=== PATIENT | male | born 1950 | race Two or more races ===

== ENCOUNTER 2017-07-13 11:25 | Outpatient (CLI) | payer OTHER ==
[~2017-07-13 11:25] MED LIST: BENDAMUSTINE; RITUXAN10 MG/1 ML
== END 2017-07-13 11:46 | disposition home or self-care (01) ==
LOC: TOM 11:25
DX: C82.23 Follicular lymphoma grade III, unspecified, intra-abdominal lymph nodes (principal)
CPT/HCPCS: 74178; Q9965

== ENCOUNTER 2017-11-09 10:11 | Outpatient (CLI) | payer OTHER | END 2017-11-09 15:20 | disposition home or self-care (01) | LOC: NUCLEAR 10:11 | DX: C82.23 Follicular lymphoma grade III, unspecified, intra-abdominal lymph nodes (principal) | CPT/HCPCS: 78815; A9552 ==

== ENCOUNTER 2019-01-23 07:50 | Outpatient (CLI) | payer OTHER | END 2019-01-23 08:29 | disposition home or self-care (01) | LOC: NUCLEAR 07:50 | DX: C82.93 Follicular lymphoma, unspecified, intra-abdominal lymph nodes (principal) | CPT/HCPCS: 78815; A9552 ==

== ENCOUNTER 2019-02-02 08:36 | Outpatient (CLI) | payer OTHER | END 2019-02-02 08:41 | disposition home or self-care (01) | LOC: SONOGRAMA 08:36 → MAMO-SONO 08:45 | DX: E04.1 Nontoxic single thyroid nodule (principal); N40.1 Benign prostatic hyperplasia with lower urinary tract symptoms; N42.89 Other specified disorders of prostate ==

== ENCOUNTER 2020-05-09 13:12 | Emergency (ER) | payer OTHER ==
[~2020-05-09] VITALS: Ht 182.9 cm; Wt 103.4 kg
== END 2020-05-09 17:09 | disposition home or self-care (01) ==
LOC: ER 13:12
DX: R42 Dizziness and giddiness (principal); B34.9 Viral infection, unspecified; Z03.818 Encounter for observation for suspected exposure to other biological agents ruled out

== ENCOUNTER → 2020-07-01 10:00 | Outpatient (CLI) | payer OTHER | END | disposition home or self-care (01) | LOC: PPH VACUNA 10:00 | PROVIDERS: ATTEND Emergency Medicine Pediatric Emergency Medicine | DX: Z23 Encounter for immunization (principal) ==

== ENCOUNTER 2020-08-21 09:27 | Outpatient (CLI) | payer OTHER | END 2020-08-21 09:36 | disposition home or self-care (01) | LOC: RAD 09:27 | PROVIDERS: ATTEND General Practice | DX: M25.561 Pain in right knee (principal) ==

== ENCOUNTER 2021-01-14 08:28 | Outpatient (CLI) | payer OTHER | END 2021-01-14 08:30 | disposition home or self-care (01) | LOC: NUCLEAR 08:28 | PROVIDERS: ATTEND Internal Medicine Hematology & Oncology | DX: C82.28 Follicular lymphoma grade III, unspecified, lymph nodes of multiple sites (principal) | CPT/HCPCS: 78815; A9552 ==

== ENCOUNTER 2021-01-19 08:00 | Outpatient (CLI) | payer OTHER | END 2021-01-19 08:30 | disposition home or self-care (01) | LOC: PPH VACUNA 08:00 | DX: Z23 Encounter for immunization (principal) ==

== ENCOUNTER 2021-01-19 08:43 | Outpatient (CLI) | payer OTHER | END 2021-01-19 08:45 | disposition home or self-care (01) | LOC: NUCLEAR 08:43 | PROVIDERS: ATTEND Emergency Medicine | DX: I20.9 Angina pectoris, unspecified (principal) | CPT/HCPCS: 78452; 93017; A9505 ==

== ENCOUNTER 2021-04-08 07:13 | Outpatient (CLI) | payer OTHER | END 2021-04-08 12:09 | disposition home or self-care (01) | LOC: TOM 07:13 → NUCLEAR 08:00 → TOM 12:09 | DX: K80.80 Other cholelithiasis without obstruction (principal); K76.0 Fatty (change of) liver, not elsewhere classified; C85.83 Other specified types of non-Hodgkin lymphoma, intra-abdominal lymph nodes | CPT/HCPCS: 74178; Q9965 ==

== ENCOUNTER 2021-08-10 08:00 | Outpatient (CLI) | payer OTHER | END 2021-08-10 08:30 | disposition home or self-care (01) | LOC: PPH VACUNA 08:00 | PROVIDERS: ATTEND Emergency Medicine Pediatric Emergency Medicine | DX: Z23 Encounter for immunization (principal) ==

== ENCOUNTER 2021-09-14 08:00 | Outpatient (CLI) | payer OTHER | END 2021-09-14 08:30 | disposition home or self-care (01) | LOC: ASH CLINIC 08:00 | PROVIDERS: ATTEND Emergency Medicine | DX: Z23 Encounter for immunization (principal) ==

== ENCOUNTER 2021-11-22 10:09 | Outpatient (CLI) | payer OTHER | END 2021-11-22 10:40 | disposition home or self-care (01) | LOC: TOM 10:09 | PROVIDERS: ATTEND Emergency Medicine | DX: N40.1 Benign prostatic hyperplasia with lower urinary tract symptoms (principal); C91.51 Adult T-cell lymphoma/leukemia (HTLV-1-associated), in remission | CPT/HCPCS: 74177; Q9965 ==

== ENCOUNTER 2021-12-30 13:27 | Outpatient (CLI) | payer OTHER | END 2021-12-30 13:33 | disposition home or self-care (01) | LOC: RAD 13:27 | PROVIDERS: ATTEND General Practice | DX: M25.561 Pain in right knee (principal); M25.562 Pain in left knee ==

== ENCOUNTER 2022-01-13 10:59 | Outpatient (CLI) | payer OTHER | END 2022-01-13 11:05 | disposition home or self-care (01) | LOC: RAD 10:59 | PROVIDERS: ATTEND Orthopaedic Surgery | DX: J12.2 Parainfluenza virus pneumonia (principal) ==

== ENCOUNTER 2022-03-16 14:35 | Outpatient (CLI) | payer OTHER | END 2022-03-16 14:45 | disposition home or self-care (01) | LOC: PPH VACUNA 14:35 | PROVIDERS: ATTEND Emergency Medicine Pediatric Emergency Medicine | DX: Z23 Encounter for immunization (principal) ==

== ENCOUNTER → 2022-09-12 | Outpatient (CLI) | payer OTHER | END | disposition home or self-care (01) | LOC: RAD 12:33 | PROVIDERS: ATTEND Emergency Medicine | DX: M25.461 Effusion, right knee (principal) ==

== ENCOUNTER 2022-12-23 13:37 | Outpatient (CLI) | payer OTHER | END 2022-12-23 13:40 | disposition home or self-care (01) | LOC: RAD 13:37 | PROVIDERS: ATTEND Emergency Medicine | DX: M25.461 Effusion, right knee (principal) ==

== ENCOUNTER 2022-12-30 09:39 | Outpatient (CLI) | payer OTHER | END 2022-12-30 09:41 | disposition home or self-care (01) | LOC: TOM 09:39 | PROVIDERS: ATTEND Surgery | DX: C91.51 Adult T-cell lymphoma/leukemia (HTLV-1-associated), in remission (principal); C85.80 Other specified types of non-Hodgkin lymphoma, unspecified site ==

== ENCOUNTER 2023-01-09 09:13 | Outpatient (CLI) | payer OTHER | END 2023-01-09 09:17 | disposition home or self-care (01) | LOC: NUCLEAR 09:13 | PROVIDERS: ATTEND Orthopaedic Surgery | DX: T84.84XA Pain due to internal orthopedic prosthetic devices, implants and grafts, initial encounter (principal); Z47.33 Aftercare following explantation of knee joint prosthesis | CPT/HCPCS: 78315; A9503 ==

== ENCOUNTER 2023-06-29 10:20 | Outpatient (CLI) | payer OTHER | END 2023-06-29 10:30 | disposition home or self-care (01) | LOC: RAD 10:20 | PROVIDERS: ATTEND Orthopaedic Surgery | DX: M17.11 Unilateral primary osteoarthritis, right knee (principal) ==

== ENCOUNTER 2023-08-15 08:06 | Outpatient (CLI) | payer OTHER | END 2023-08-15 08:08 | disposition home or self-care (01) | LOC: NUCLEAR 08:06 | PROVIDERS: ATTEND Internal Medicine Hematology & Oncology | DX: C85.85 Other specified types of non-Hodgkin lymphoma, lymph nodes of inguinal region and lower limb (principal); C85.86 Other specified types of non-Hodgkin lymphoma, intrapelvic lymph nodes | CPT/HCPCS: 78815; A9552 ==